=== PATIENT | female | born 2000 | race Caucasian/White ===

== ENCOUNTER 2022-06-01 12:47 | Emergency (ER) | payer BC, SELFPAY ==
[2022-06-01 13:02] VITALS: BP 108/77; PULSE 68; RESP 18; TEMP 36.3; O2SAT 98
--- NOTE | 2022-06-01 13:07 | ED.HA ---
HPI - Headache General Chief Complaint: Upper Respiratory Infection Stated Complaint: headache Time Seen by Provider: 06/01/22 13:10 Source: patient Mode of arrival: ambulatory Limitations: no limitations History of Present Illness HPI Narrative: Tabitha is a 21-year-old female patient presenting to the clinic today with complaints of a headache and sinus pressure x1 week. She reports that beginning this week she feels as though she has the flu. States that she has a ongoing headache. Has pain over the frontal lobe and feels as though there is a vice mulling machine operator around her head. She has taken Motrin and not had much relief so she tried Excedrin migraine and this helped. She rates her pain currently a 2/10 for pain. Related Data Home Medications Medication Instructions Recorded Confirmed cetirizine 10 mg tablet (Zyrtec) 10 mg PO DAILY 06/01/22 06/01/22 norgestimate 0.25 mg-ethinyl 1 tablet PO DAILY 06/01/22 06/01/22 estradiol 35 mcg tablet (Sprintec (28)) spironolactone 50 mg tablet 50 mg PO DAILY 06/01/22 06/01/22 Allergies Allergy/AdvReac Type Severity Reaction Status Date / Time amoxicillin AdvReac Mild Rash Verified 06/01/22 13:16 Review of Systems Review of Systems: Pertinent positives per HPI. Patient denies any fever, chills, rash, visual changes, dizziness, cough, shortness of breath, chest pain, palpitations, nausea, vomiting, diarrhea, constipation, abdominal pain, or any urinary issues. PMFSH Comments At the time of my signature, I reviewed and agree with the nursing past medical, surgical, social, and family history. There is no relevant family history pertinent to the patient complaint. Exam Narrative: General: Well-developed, overweight, in no apparent distress Head: Normocephalic, atraumatic-tension/stress headache across the frontal lobe and behind the eyes-no visual changes Eyes: Pupils equally round and reactive to light bilaterally, EOM intact, sclera and conjunctive clear, no discharge, lids normal Ears: TMs intact and clear, ear canals clear, no drainage, grossly hearing normal. Nose: Nares patent, clear nasal discharge, no inflammation, no sinus tenderness. Mouth: Oral pharynx without lesions or masses, good dentition, MMM. Neck: Supple, trachea midline, no enlargement of anterior or posterior cervical nodes, no thyroid masses or goiter palpable. Cardio: Regular rate and rhythm, s1 and s2 normal, no murmur appreciated. Resp: Clear to auscultation bilaterally, no rhonchi, rales, wheezing or rubs Musculoskeletal: No deformity, non-tender to palpation, grossly normal range of motion, muscle strength strong and equal, peripheral pulse strong, no edema, no cyanosis, normal gait and station Neuro: Alert and oriented x4 with normal speech, no focal deficits, cranial nerves I through XII intact, muscle strength 5 out of 5, sensation intact bilaterally, negative Romberg test Course Course Emergency Course: Portions of this record may have been created with voice recognition software. Level of Care: Express Care Visit Vital Signs Vital signs: Vital Signs Temperature 36.3 C L 06/01/22 13:02 Pulse Rate 68 06/01/22 13:02 Respiratory Rate 18 06/01/22 13:02 Blood Pressure 108/77 06/01/22 13:02 Pulse Oximetry 98 06/01/22 13:02 Oxygen Delivery Room Air 06/01/22 13:02 Temperature 36.3 C L 06/01/22 13:02 Pulse Rate 68 06/01/22 13:02 Respiratory Rate 18 06/01/22 13:02 Blood Pressure 108/77 06/01/22 13:02 Pulse Oximetry 98 06/01/22 13:02 Oxygen Delivery Room Air 06/01/22 13:02 Vital signs reviewed MDM - Headache MDM Narrative Medical decision making narrative: At the time of visit patient is resting comfortably on the exam table. I suspect the patient has tension headache. Prescription for naproxen was sent to the pharmacy as needed for her headache. Supportive measures were discussed with the patient she voiced understanding of discharge instructio
== END 2022-06-01 13:35 | disposition home or self-care (01) ==
PROVIDERS: Emergency Provider Nurse Practitioner Family; PCP Physician Assistant
DX: G44.209 Tension-type headache, unspecified, not intractable (principal)
CPT/HCPCS: 99203; G0463

== ENCOUNTER 2023-03-24 16:04 | Emergency (ER) | payer BC, SELFPAY ==
--- NOTE | 2023-03-24 16:05 | ED.URI ---
HPI - URI/Sore Throat General Chief Complaint: Upper Respiratory Infection Stated Complaint: Congestion,Sore Throat Time Seen by Provider: 03/24/23 16:05 Source: patient Mode of arrival: ambulatory Limitations: no limitations History of Present Illness HPI Narrative: Patient is a 22-year-old female who presents with congestion and sore throat that started this morning. Patient states she has had strep multiple times. States throughout the day she has just had increased fatigue and worsening sore throat. Has taken dull some ibuprofen with no relief. Does take a daily allergy medicine Related Data Home Medications Medication Instructions Recorded Confirmed cetirizine 10 mg tablet (Zyrtec) 10 mg PO DAILY 06/01/22 03/24/23 norgestimate 0.25 mg-ethinyl 1 tablet PO DAILY 06/01/22 06/01/22 estradiol 35 mcg tablet (Sprintec (28)) Allergies Allergy/AdvReac Type Severity Reaction Status Date / Time amoxicillin AdvReac Mild Rash Verified 03/24/23 16:22 Review of Systems Review of Systems: All systems reviewed & are unremarkable except as noted in HPI and below Constitutional: Constitutional: Denies body ache(s), Denies chills, Denies fatigue, Denies fever(s), Denies headache(s), Denies malaise and Denies weakness Eyes: Eyes: Denies blurry vision, Denies itchy eyes and Denies loss of vision ENT: Denies otalgia, Denies headache(s), Reports nasal congestion, Denies sinus pain and Reports sore throat Cardiovascular: Cardiovascular: Denies chest pain, Denies irregular heart rhythm and Denies dyspnea Respiratory: Respiratory: Denies cough and Denies dyspnea Gastrointestinal: Gastrointestinal: Denies abdominal pain, Denies diarrhea, Denies nausea and Denies vomiting Musculoskeletal: Musculoskeletal: Denies back pain, Denies myalgias and Denies arthralgias Integumentary/Breasts: Skin/Breast: Denies pruritus and Denies rash Neurologic: Denies headache(s), Denies loss of vision and Denies weakness Psychiatric: Psychiatric: Reports no additional psychiatric complaints Endocrine: Endocrine: Denies fatigue Allergic/Immunologic: Allergic/Immunologic: Denies itchy eyes PMFSH Comments At time of signature, agree with nursing past medical, surgical, social and family history. There is no relevant family history pertinent to the presenting complaint. Exam Const: General: cooperative, healthy appearing, comfortable, no acute distress and well nourished Nutritional Appearance: well nourished Orientation/consciousness: patient oriented x3 Limitations: no limitations HENMT: Head: normal to inspection, normocephalic and atraumatic Ears: hearing grossly normal bilaterally, external ears normal, EAC's normal, no periauricular adenopathy and TM abnormal wth effusion serous bilateral Face/Nose/Sinus: Normal external nose present, Abnormal mucous membranes and turbinates present erythematous bilateral and diffuse, normal facial exam, sinuses nontender and face symmetric Face and sinus: normal facial exam, sinuses nontender and face symmetric Mouth: Yes Normal oral and palatal mucosa present, Yes lip normal, Yes tongue normal, Yes Normal salivary glands and ducts present, Yes oropharynx normal and Yes moist mucous membranes Teeth and gingiva: dentition normal Throat: uvula midline, abnormal tonsil bilateral erythema, hypertrophy 3+ and pitting, posterior oropharynx abnormal erythema and postnasal drainage Eyes: General: appearance normal, both eyes and all related structures Alignment and Position: alignment normal and position normal Periorbital: periorbital findings normal Eyelids: eyelids normal Pupils: Equal, round and reactive pupils present Neck: Neck: normal visual inspection, full ROM, no lymphadenopathy and supple Chest: Chest palpation & inspection: normal inspection of the chest and normal palpation of entire chest wall Resp: Effort & Inspection: normal respiratory effort and able to speak in complete sentences Auscul
[2023-03-24 16:12] VITALS: BP 120/64; PULSE 82; RESP 16; TEMP 36.3; O2SAT 99
== END 2023-03-24 16:36 | disposition home or self-care (01) ==
PROVIDERS: Emergency Provider Nurse Practitioner Family; PCP Physician Assistant
DX: J03.90 Acute tonsillitis, unspecified (principal)
CPT/HCPCS: 87081; 87880; 99213; G0463